=== PATIENT | male | born 1990 | race African-American/Black ===

== ENCOUNTER 2020-09-12 22:06 | Inpatient (IN) | payer MEDICAID, OTHER ==
[~2020-09-12] VITALS: Ht 180.3 cm; Wt 96.2 kg
--- NOTE | 2020-09-12 22:41 | NUR ---
PATIENT CAME TO ER BED 10 C/O RIGHT LOWER ABDOMINAL PAIN SINCE 2xDAYS WORSENING. PATIENT STATES THAT IT MAY BE DUE TO CONSTIPATION. NEGATIVE MCBURNEY'S POINT. PATIENT IS AAOX4. NO SOB. BREATHING EVENLY AND UNLABORED ON ROOM AIR. CONNECTED TO THE MONITOR.
--- NOTE | 2020-09-12 22:45 | NUR ---
BLOOD COLLECTED AND SENT TO THE LAB.
[2020-09-12 22:47] LABS: BASOPHILS # (AUTO) 0.1 /CMM (0.0-0.2); BASOPHILS % (AUTO) 0.5 % (0.0-2.0); EOSINOPHILS % (AUTO) 1.2 % (0.0-6.0); HEMATOCRIT 43 % (39-51); HEMOGLOBIN 14.2 g/dL (13.5-17.5); LYMPHOCYTES % (AUTO) 10.3 % (20.0-44.0); MEAN CORPUSCULAR HGB CONC 33 g/dl (31.0-36.0); MEAN CORPUSCULAR VOLUME 87 fL (80-96); MONOCYTES # (AUTO) 0.5 /CMM (0.1-1.30); MONOCYTES % (AUTO) 5.4 % (2.0-12.0); NEUTROPHILS # (AUTO) 8.3 /CMM (1.8-8.9); NEUTROPHILS % (AUTO) 82.6 % (43.0-81.0); PLATELET COUNT (AUTO) 169 /CMM (150-450); RED BLOOD CELL COUNT(AUTO) 4.96 MIL/uL (4.5-6.0); WHITE BLOOD COUNT (AUTO) 10.1 K/uL (4.3-11.0)
[2020-09-12 22:55] LABS: CALCIUM, SERUM 9.1 mg/dL (8.5-10.1); CREATININE 1.2 mg/dL (0.6-1.3); POTASSIUM 3.3 mmol/L (3.5-5.1)
[2020-09-12 23:00] LABS: BILIRUBIN,DIRECT 0.1 mg/dL (0.0-0.2); BILIRUBIN,TOTAL 0.5 mg/dL (0.2-1.0); TOTAL PROTEIN, SERUM 8.1 g/dL (6.4-8.2)
[2020-09-12] MEDS ORDERED: IV NS 0.9% 250 ML IV ONE (23:04)
[2020-09-12] MEDS ORDERED: IOHEXOL-300 100 ML VIAL IV ONE (23:04)
--- NOTE | 2020-09-12 23:19 | NUR ---
PT RETURNED FROM CT
--- NOTE | 2020-09-12 23:49 | NUR ---
PAGED DR. VANEGAS (SURGERY BRUSH FINISHER) PER DR. CARMICHAEL REQUEST
[2020-09-13] MEDS ORDERED: CEFTRIAXONE 1GM BAG (ER ONLY) 1 GM/50 ML PIGGYBACK IV ONE
--- NOTE | 2020-09-13 00:15 | NUR ---
DR. CARMICHAEL SPEAKING WITH STEPHANIE RODRIGUES NP REGARDING ADMISSION
[2020-09-13] MEDS ORDERED: CEFTRIAXONE 1GM BAG (ER ONLY) 50 ML IV ONE (00:18)
--- NOTE | 2020-09-13 00:18 | NUR ---
BED ASSIGNMENT 109
[2020-09-13] MEDS ORDERED: POTASSIUM CL. PREMIX PERIPHER. 50 ML IV SCH (00:30)
[2020-09-13] MEDS ORDERED: ONDANSETRON HCL/PF 4 MG/2 ML VIAL IVP PRN (00:30)
[2020-09-13] MEDS ORDERED: MORPHINE SULFATE INJ 2 MG/ML DISP.SYRIN IV PRN (00:30)
--- NOTE | 2020-09-13 00:33 | NUR ---
REPORT GIVEN TO GO POWERS FOR TREVOR.
--- NOTE | 2020-09-13 00:45 | NUR ---
PATIENT BROUGHT TO ASSIGNED ROOM.
--- NOTE | 2020-09-13 00:55 | NUR ---
MS LOAN AND CREDIT MANAGER NOTES, 30 YEAR OLD MALE ADMITTED FROM ER VIA STRETCHER ACCOMPANIED BY A NURSE, UNDER [facility] WITH ADMITTING DX ACUTE APPENDICITIS, PATIENT A/O X4 BREATHING EVEN AND UNLABORED, NO SOB/ACUTE DISTRESS NOTED, IV ACCESS LEFT AC 18G S/L, PATIENT WITH ORDER FOR NPO FOR FURTHER EVALUATION TOMORROW/POSSIBLE SURGERY, C/O ABDOMINAL PAIN RIGHT LOWER QUADRANT ASKING FOR PAIN MEDICATION, WILL ADMINISTER, AMBULATORY, SKIN INTACT, AFEBRILE, BED IN LOWEST POSITION, CALL LIGHT W/I REACH, WILL CONTINUE TO MONITOR CLOSELY.
[2020-09-13 01:00] VITALS: BP 137/74
[2020-09-13] MEDS: IV D5/0.45 NACL 1,000 ML IV PRN ×2 (01:09→15:28)
--- NOTE | 2020-09-13 01:46 | NUR ---
RN NOTES, POTASSIUM INFUSING AND PATIENT ASKED TO REMOVED AND DONT GIVE POTASSIUM, COMBINED POTASSIUM WITH THE IV FLUIDS, AND PATIENT STILL REFUSED, HE STATED HE DOESN'T WANT POTASSIUM AT ALL, SEBASTIAN AWARE.
--- NOTE | 2020-09-13 02:00 | NUR ---
RN NOTES, PATIENT ASKED FOR PAIN MEDICATION, INFORMED THAT HE HAD MORPHINE, HE AGREED TO HAVE MORPHINE ONCE ABOUT TO GIVE, HE AID HE WAS OK AND HE DIDN'T WANT THE MORPHINE, MEDICATION WASTED AND CHARGE NURSE PRIYA OWENS AWARE AND WITNESSED EVENT.
[2020-09-13 06:32] LABS: ALBUMIN 3.6 g/dL (3.4-5.0); BILIRUBIN,TOTAL 0.7 mg/dL (0.2-1.0); CALCIUM, SERUM 8.7 mg/dL (8.5-10.1); CREATININE 1.1 mg/dL (0.6-1.3); POTASSIUM 3.8 mmol/L (3.5-5.1); TOTAL PROTEIN, SERUM 7.3 g/dL (6.4-8.2)
[2020-09-13 06:35] LABS: BASOPHILS % (AUTO) 0.3 % (0.0-2.0); EOSINOPHILS % (AUTO) 0.5 % (0.0-6.0); HEMATOCRIT 40 % (39-51); HEMOGLOBIN 13.6 g/dL (13.5-17.5); LYMPHOCYTES # (AUTO) 1.3 /CMM (0.8-4.8); MEAN CORPUSCULAR HGB CONC 34 g/dl (31.0-36.0); MEAN CORPUSCULAR VOLUME 86 fL (80-96); MONOCYTES # (AUTO) 0.6 /CMM (0.1-1.30); MONOCYTES % (AUTO) 6.1 % (2.0-12.0); NEUTROPHILS # (AUTO) 8.3 /CMM (1.8-8.9); NEUTROPHILS % (AUTO) 80.1 % (43.0-81.0); PLATELET COUNT (AUTO) 160 /CMM (150-450); WHITE BLOOD COUNT (AUTO) 10.3 K/uL (4.3-11.0)
--- NOTE | 2020-09-13 06:51 | NUR ---
MS RN NOTES, PATIENT SLEEPING AT THIS TIME, BREATHING EVEN AND UNLABORED, NO SOB/ACUTE DISTRESS NOTED, PATIENT STATED PAIN IS TOLERABLE, HE DIDN'T WANT PAIN MEDICATION THROUGHOUT THE NIGHT, AFEBRILE, NO SIGNIFICANT CHANGE IN CONDITION, BEING NPO SINCE ADMISSION, BED IN LOWEST POSITION, CALL LIGHT W/I REACH, WILL ENDORSE CONTINUITY OF CARE TO ONCOMING NURSE.
--- NOTE | 2020-09-13 07:30 | NUR ---
RN OPENING NOTES Received patient in bed, A/Ox4, sleeping comfortably, on room air, SPO2 is 100%, denies pain or discomfort, IV line on L AC, patent and intact, running d51/2ns @ 80cc/hr, tolerating well, ambulatory, skin is intact, NPO status diet. Safety measures implemented, bed in lowest position, HOB elevated, call light in reach, will cont to monitor
[2020-09-13 08:00] VITALS: BP 98/69
--- NOTE | 2020-09-13 15:30 | NUR ---
Dr [place] at [facility] site
[2020-09-13 16:00] VITALS: BP 128/64
--- NOTE | 2020-09-13 18:52 | NUR ---
RN CLOSING NOTE PATIENT REMAINS IN BED, TOLERATING FLUIDS WELL, ON LIQUID DIET, ABLE TO AMBULATE, COMFORT NEEDS ATTENDED, SAFETY MEASURES IN PLACE, CALL LIGHT TIN REACH WILL ENDORSE TO PM SHIFT RN FOR TREVOR
[2020-09-13 20:00] VITALS: BP 114/59
--- NOTE | 2020-09-13 20:00 | NUR ---
MS RN OPENING NOTE RECEIVED PT IN BED. AWAKE A/O X4. BREATHING EVEN AND UNLABORED WITH NO SOB OR ACUTE DISTRESS NOTED. DENIES ANY PAIN OR DISCOMFORT. LEFT AC IV PATENT AND INTACT. SRX2 UP. BED IN LOWEST POSITION. ALL NEEDS RENDERED. REPOSITIONED . WILL CONTINUE TO MONITOR
[2020-09-13] MEDS: METRONIDAZOLE 500MG/ NS 100ML 500 MG in PREMIX 1 EA IV SCH (20:07)
[2020-09-13] MEDS: CEFTRIAXONE 1 G in IV D5W 50 ML IV SCH (23:16)
[2020-09-14 04:00] VITALS: BP 133/52
[2020-09-14] MEDS: METRONIDAZOLE 500MG/ NS 100ML 500 MG in PREMIX 1 EA IV SCH ×3 (04:10→19:55)
[2020-09-14 06:23] LABS: BASOPHILS % (AUTO) 0.8 % (0.0-2.0); EOSINOPHILS % (AUTO) 2.9 % (0.0-6.0); HEMATOCRIT 40 % (39-51); HEMOGLOBIN 13.3 g/dL (13.5-17.5); LYMPHOCYTES # (AUTO) 1.7 /CMM (0.8-4.8); LYMPHOCYTES % (AUTO) 40.6 % (20.0-44.0); MEAN CORPUSCULAR HGB CONC 34 g/dl (31.0-36.0); MEAN CORPUSCULAR VOLUME 86 fL (80-96); MONOCYTES # (AUTO) 0.4 /CMM (0.1-1.30); MONOCYTES % (AUTO) 8.9 % (2.0-12.0); NEUTROPHILS # (AUTO) 1.9 /CMM (1.8-8.9); NEUTROPHILS % (AUTO) 46.8 % (43.0-81.0); PLATELET COUNT (AUTO) 160 /CMM (150-450); RED BLOOD CELL COUNT(AUTO) 4.58 MIL/uL (4.5-6.0); WHITE BLOOD COUNT (AUTO) 4.1 K/uL (4.3-11.0)
[2020-09-14 06:26] LABS: CALCIUM, SERUM 8.6 mg/dL (8.5-10.1); POTASSIUM 3.5 mmol/L (3.5-5.1)
--- NOTE | 2020-09-14 06:32 | NUR ---
MS RN CLOSING NOTE PT IN BED SLEEPING. BREATHING EVEN AND UNLABORED WITH NO SOB OR ACUTE DISTRESS NOTED. NO S/S OF PAIN AND DISCOMFORT. IV FLUIDS INFUSING WELL. IV SITE PATENT AND INTACT. ALL NEEDS RENDERED. CALL LIGHT WITHIN REACH. WILL ENDORSE TO AM NURSE FOR CONTINUITY OF CARE
[2020-09-14] MEDS: IV D5/0.45 NACL 1,000 ML IV PRN ×2 (06:44→19:12)
--- NOTE | 2020-09-14 07:45 | NUR ---
RN OPENING NOTE PT IN BED SLEEPING. BREATHING EVEN AND UNLABORED WITH NO SOB OR ACUTE DISTRESS NOTED. NO S/S OF PAIN AND DISCOMFORT. IV FLUIDS INFUSING WELL. IV SITE PATENT AND INTACT NO S/S OF INFECTION OR INFILTRATION NOTED .SAFETY MEASUREMENTS ARE IMPLEMENTED PER HOSPITAL POLICY. SIDE RAILS X2. CALL LIGHT WITHIN THE REACH. WILL CONTINUE TO MONITOR
[2020-09-14 12:00] VITALS: BP 116/62
--- NOTE | 2020-09-14 14:31 | NUR ---
RN NOTES PUT ON ORDER FOR ADVANCED DIET 3D MODELER ORDEE
--- NOTE | 2020-09-14 18:37 | NUR ---
RN CLOSING NOTE PT IS RESTING . BREATHING EVEN AND UNLABORED WITH NO SOB OR ACUTE DISTRESS NOTED. NO S/S OF PAIN AND DISCOMFORT. IV FLUIDS INFUSING WELL. IV SITE PATENT AND INTACT NO S/S OF INFECTION OR INFILTRATION NOTED .SAFETY MEASUREMENTS ARE IMPLEMENTED PER HOSPITAL POLICY. SIDE RAILS X2. CALL LIGHT WITHIN THE REACH. WILL ENDORSE TO VP SOFTWARE ENGINEERING
[2020-09-14 20:00] VITALS: BP 133/73
--- NOTE | 2020-09-14 20:00 | NUR ---
RN NOTE PT RECEIVED IN BED, A/A/O X3, PT IS ON RA SATING 96%. PT HAS UNLABORED BREATHING , SAFETY MEASURES IN PLACE. BED AT LOWEST, LOCKED, SIDE RAILS UP X2, CALL LIGHT IN REACH.
[2020-09-15] MEDS: CEFTRIAXONE 1 G in IV D5W 50 ML IV SCH (00:04)
[2020-09-15 04:00] VITALS: BP 113/73
[2020-09-15] MEDS: METRONIDAZOLE 500MG/ NS 100ML 500 MG in PREMIX 1 EA IV SCH ×2 (04:28→11:38)
[2020-09-15 06:04] LABS: BASOPHILS % (AUTO) 0.2 % (0.0-2.0); EOSINOPHILS % (AUTO) 4.3 % (0.0-6.0); HEMATOCRIT 39 % (39-51); HEMOGLOBIN 13.1 g/dL (13.5-17.5); LYMPHOCYTES # (AUTO) 1.8 /CMM (0.8-4.8); LYMPHOCYTES % (AUTO) 45.5 % (20.0-44.0); MEAN CORPUSCULAR HGB CONC 34 g/dl (31.0-36.0); MEAN CORPUSCULAR VOLUME 85 fL (80-96); MONOCYTES # (AUTO) 0.4 /CMM (0.1-1.30); MONOCYTES % (AUTO) 10.7 % (2.0-12.0); NEUTROPHILS # (AUTO) 1.6 /CMM (1.8-8.9); NEUTROPHILS % (AUTO) 39.3 % (43.0-81.0); PLATELET COUNT (AUTO) 167 /CMM (150-450); RED BLOOD CELL COUNT(AUTO) 4.59 MIL/uL (4.5-6.0)
[2020-09-15 06:09] LABS: CALCIUM, SERUM 8.7 mg/dL (8.5-10.1); MAGNESIUM 2.1 mg/dL (1.8-2.4); PHOSPHORUS 5.1 mg/dL (2.5-4.9); POTASSIUM 3.7 mmol/L (3.5-5.1)
--- NOTE | 2020-09-15 07:26 | NUR ---
RN NOTE PT REMAINED STABLE DURING MY SHIFT. REPORT GIVEN TO INCOMING SHIFT FOR TREVOR.
--- NOTE | 2020-09-15 07:45 | NUR ---
RN OPENING NOTE PT IS RESTING . BREATHING EVEN AND UNLABORED WITH NO SOB OR ACUTE DISTRESS NOTED. NO S/S OF PAIN AND DISCOMFORT. IV FLUIDS INFUSING WELL. IV SITE PATENT AND INTACT NO S/S OF INFECTION OR INFILTRATION NOTED .SAFETY MEASUREMENTS ARE IMPLEMENTED PER HOSPITAL POLICY. SIDE RAILS X2. CALL LIGHT WITHIN THE REACH. WILL CONTINUE TO MONITOR
[2020-09-15] MEDS: IV D5/0.45 NACL 1,000 ML IV PRN (10:22)
[2020-09-15] MEDS ORDERED: CIPR-262 PO (11:32)
[2020-09-15] MEDS ORDERED: METR500T PO (11:32)
[2020-09-15 12:00] VITALS: BP 113/73
--- NOTE | 2020-09-15 12:00 | NUR ---
RN NOTES ORDER FOR DC WAITING FOR THE LAST IV ANTIBIOTIC
--- NOTE | 2020-09-15 15:00 | NUR ---
RN NOTES PT IS IN STABLE CONDITION AND READY TO GET DC VS WNL. DC IV AND GAVE DC INSTRUCTIONS AND WALKED HIM OUTSIDE. CALLED [facility] VERIFIED PREFERRED PHARMACY [facility] ARE READY TP GET PICKED UP
--- NOTE | 2020-09-15 15:00 | NUR ---
RN NOTES SKIN IS INTACT NO PIX
[2020-09-15 16:21] LABS: BILIRUBIN,URINE NEGATIVE (NEGATIVE); BLOOD, URINE NEGATIVE Ery/uL (NEGATIVE); COLOR,URINE YELLOW (YELLOW); LEUKOCYTE ESTERASE ,URINE NEGATIVE (NEGATIVE); NITRITE, URINE NEGATIVE (NEGATIVE); PH,URINE 6.5 (5.0-8.0); PROTEIN,URINE NEGATIVE (NEGATIVE); UGLUCOSE NEGATIVE (NEGATIVE); UROBILINOGEN,URINE 0.2 EU/dL (0.2)
== END 2020-09-15 16:00 | disposition home or self-care (01) | DRG 248 ==
LOC: ER 22:08 → MEDSG1 09-13 00:27
PROVIDERS: ADMIT Internal Medicine; ATTEND Student in an Organized Health Care Education/Training Program
DX: K35.30 Acute appendicitis with localized peritonitis, without perforation or gangrene (principal); K43.9 Ventral hernia without obstruction or gangrene; Z91.018 Allergy to other foods
CPT/HCPCS: 36415; 80048-TC; 80053-TC; 80076-TC; 81000-TC; 83690-TC; 83735-TC; 84100-TC; 85025-TC; 85730-TC; 87081-TC; A4216; G0378; J0696; J2270; J2405; J3480; J3490; J7050; J7060; Q9967